=== PATIENT | male | born 1960 | race Caucasian/White ===

== ENCOUNTER 2021-11-18 09:27 | Emergency (ER) | payer MEDICAID ==
[~2021-11-18] VITALS: Ht 180.3 cm; Wt 84.1 kg
[2021-11-18 09:45] VITALS: BP 131/81
[2021-11-18] MEDS ORDERED: LIDOcaine 1.5% w/epinephrine 1:200,000 5ml ampul IJ ONE (09:50)
[2021-11-18] MEDS ORDERED: TETanus/Pertussis (Acell)/Diphther VAC/PF (Tdap-Adult) 0.5ml syringe IMVAC ONE (09:50)
[2021-11-18] MEDS ORDERED: LIDOcaine 1% w/EPI 1:100,000 30ml vial (MDV) IJ ONE (09:55)
[2021-11-18] MEDS ORDERED: CEPH250T PO (10:54)
[2021-11-18] MEDS ORDERED: HYDR-3965 PO ×2 (10:54→12:31)
== END 2021-11-18 11:11 | disposition home or self-care (01) ==
LOC: ER 09:28
DX: S61.412A Laceration without foreign body of left hand, initial encounter (principal); I51.9 Heart disease, unspecified; W18.49XA Other slipping, tripping and stumbling without falling, initial encounter; Y93.89 Activity, other specified; Y92.89 Other specified places as the place of occurrence of the external cause; Y99.8 Other external cause status
CPT/HCPCS: 12002; 73130; 90471; 90715; 99283